=== PATIENT | female | born 1995 | race Caucasian/White ===

== ENCOUNTER 2017-12-16 02:33 | Emergency (ER) | payer BC ==
[2017-12-16 02:41] VITALS: BP 125/80
--- NOTE | 2017-12-16 03:02 | ER Report ---
History and Physical Time Seen By MD: 02:56 Hx. of Stated Complaint: PATIENT STATES THAT SHE HAS SUICIDE IDEATION; SHE DOSE HAVE A PLAN; STATES THAT IT HAS CHANGED OVER THE CORSE OF THE NIGHT; PATIENT STATES THAT SHE WAS GOING TO OVER DOSE ON ANY MEDICATION THAT SHE HAD IN THE HOUSE. HPI/ROS CHIEF COMPLAINT: suicidal ideation HISTORY OF PRESENT ILLNESS: This is a 22 year old female. She is feeling suicidal. Plan was to overdose on medication tonight. Having relationship problems. Is from [place], and needs to return this spring. Has had depression since she was 11 years old. Has attempted suicide twice in the past with attempted strangulation, but never told anyone. [facility]. No medications. No other health problems. REVIEW OF SYSTEMS: Respiratory: No cough, no dyspnea. Cardiovascular: No chest pain, no palpitations. Gastrointestinal: No vomiting, no abdominal pain. Musculoskeletal: No musculoskeletal pain. Allergies: Coded Allergies: Penicillins (Verified Allergy, Unknown, 12/16/17) Home Meds No Active Prescriptions or Reported Meds Reviewed Nurses Notes: Yes Hx Substance Use Disorder: Yes (MARIJUANA) Hx Alcohol Use: Yes Constitutional Vital Sign - Last 24 Hours 12/16/17 02:41 Temp 98.7 Pulse 105 Resp 18 B/P (MAP) 125/80 Pulse Ox 96 O2 Delivery Room Air Physical Exam General Appearance: Alert, no acute distress. Eyes: Pupils equal and round. ENT: Normal oral mucosa. Moist mucous membranes. Neck: Neck is supple and non tender. Respiratory: Chest is non tender, lungs are clear to auscultation. Cardiac: regular rate and rhythm Gastrointestinal: Abdomen is soft and non tender, no masses, bowel sounds normal. Musculoskeletal: Extremities have full range of motion. Non tender. Skin: No rashes or lesions. DIFFERENTIAL DIAGNOSIS: After history and physical exam differential diagnosis was considered for suicidal ideation. Medical Decision Making Data Points Result Diagram: 12/16/17 0250 12/16/17 0250 Laboratory Hematology Test 12/16/17 02:50 12/16/17 03:44 Red Blood Count 4.89 M/uL (4.17-5.56) Mean Corpuscular Volume 90.1 fL (80.0-96.0) Mean Corpuscular Hemoglobin 31.2 pg (26.0-33.0) Mean Corpuscular Hemoglobin Concent 34.6 g/dL (32.0-36.0) Red Cell Distribution Width 13.3 % (11.5-14.5) Mean Platelet Volume 6.7 fL (7.2-11.1) Neutrophils (%) (Auto) 63.1 % (39.4-72.5) Lymphocytes (%) (Auto) 28.0 % (17.6-49.6) Monocytes (%) (Auto) 6.9 % (4.1-12.4) Eosinophils (%) (Auto) 1.2 % (0.4-6.7) Basophils (%) (Auto) 0.8 % (0.3-1.4) Nucleated RBC Relative Count (auto) 0.0 /100WBC Neutrophils # (Auto) 6.8 K/uL (2.0-7.4) Lymphocytes # (Auto) 3.0 K/uL (1.3-3.6) Monocytes # (Auto) 0.7 K/uL (0.3-1.0) Eosinophils # (Auto) 0.1 K/uL (0.0-0.5) Basophils # (Auto) 0.1 K/uL (0.0-0.1) Nucleated RBC Absolute Count (auto) 0.00 K/uL Sodium Level 144 mmol/L (137-145) Potassium Level 3.9 mmol/L (3.5-5.0) Chloride Level 100 mmol/L (98-107) Carbon Dioxide Level 26 mmol/L (22-31) Blood Urea Nitrogen 8 mg/dl (7-18) Creatinine 0.80 mg/dl (0.52-1.04) Glomerular Filtration Rate Calc > 60.0 Random Glucose 95 mg/dl (75-110) Calcium Level 9.7 mg/dl (8.4-10.2) Magnesium Level 2.1 mg/dl (1.7-2.2) Total Bilirubin 0.3 mg/dl (0.2-1.3) Aspartate Amino Transf (AST/SGOT) 19 U/L (0-35) Alanine Aminotransferase (ALT/SGPT) 28 U/L (0-56) Alkaline Phosphatase 87 U/L (0-126) Total Protein 9.1 gm/dl (6.3-8.2) Albumin 4.9 g/dl (3.5-5.0) Human Chorionic Gonadotropin, Qual Negative (NEGATIVE) Salicylates Level < 10 mg/L Salicylate Last Dose Date Unk Acetaminophen Level < 10 ug/ml Serum Alcohol 43 mg/dl Urine Color Straw Urine Clarity Clear Urine pH 7.0 pH (4.8-9.5) Urine Specific [place] 1.008 Urine Protein Negative mg/dL (NEGATIVE) Urine Glucose (UA) Negative mg/dL (NEGATIVE) Urine Ketones Negative mg/dL (NEGATIVE) Urine Blood Negative (NEGATIVE) Urine Nitrite Negative (NEGATIVE) Urine Bilirubin Negative (NEGATIVE) Urine Urobilinogen Negative mg/dL (0.2-1.9) Urine Leukocyte Esterase Negative (NEGATIVE) Urine RBC None /HPF (0-2/HPF) Urine WBC 1 /HPF (0-5/HPF) Urine Squamous Epithelial Cells Few /LPF (</=FEW) Urine Bacteria Negative /HPF (NONE-FEW) Urine Mucus None /HPF (NONE-FEW) Urine Opiates Screen Negative Urine Barbiturates Screen Negative Ur Tricyclic Antidepressants Screen Negative Urine Phencyclidine Screen Negative Urine Amphetamines Screen Negative Urine Benzodiazepines Screen Negative Urine Cocaine Screen Negative Urine Cannabinoids Screen Negative Chemistry Test 12/16/17 02:50 12/16/17 03:44 White Blood Count 10.7 k/uL (4.5-11.0) Red Blood Count 4.89 M/uL (4.17-5.56) Hemoglobin 15.3 g/dL (12.0-16.0) Hematocrit 44.0 % (34.0-47.0) Mean Corpuscular Volume 90.1 fL (80.0-96.0) Mean Corpuscular Hemoglobin 31.2 pg (26.0-33.0) Mean Corpuscular Hemoglobin Concent 34.6 g/dL (32.0-36.0) Red Cell Distribution Width 13.3 % (11.5-14.5) Platelet Count 373 K/uL (150-450) Mean Platelet Volume 6.7 fL (7.2-11.1) Neutrophils (%) (Auto) 63.1 % (39.4-72.5) Lymphocytes (%) (Auto) 28.0 % (17.6-49.6) Monocytes (%) (Auto) 6.9 % (4.1-12.4) Eosinophils (%) (Auto) 1.2 % (0.4-6.7) Basophils (%) (Auto) 0.8 % (0.3-1.4) Nucleated RBC Relative Count (auto) 0.0 /100WBC Neutrophils # (Auto) 6.8 K/uL (2.0-7.4) Lymphocytes # (Auto) 3.0 K/uL (1.3-3.6) Monocytes # (Auto) 0.7 K/uL (0.3-1.0) Eosinophils # (Auto) 0.1 K/uL (0.0-0.5) Basophils # (Auto) 0.1 K/uL (0.0-0.1) Nucleated RBC Absolute Count (auto) 0.00 K/uL Glomerular Filtration Rate Calc > 60.0 Calcium Level 9.7 mg/dl (8.4-10.2) Magnesium Level 2.1 mg/dl (1.7-2.2) Total Bilirubin 0.3 mg/dl (0.2-1.3) Aspartate Amino Transf (AST/SGOT) 19 U/L (0-35) Alanine Aminotransferase (ALT/SGPT) 28 U/L (0-56) Alkaline Phosphatase 87 U/L (0-126) Total Protein 9.1 gm/dl (6.3-8.2) Albumin 4.9 g/dl (3.5-5.0) Human Chorionic Gonadotropin, Qual Negative (NEGATIVE) Salicylates Level < 10 mg/L Salicylate Last Dose Date Unk Acetaminophen Level < 10 ug/ml Serum Alcohol 43 mg/dl Urine Color Straw Urine Clarity Clear Urine pH 7.0 pH (4.8-9.5) Urine Specific [place] 1.008 Urine Protein Negative mg/dL (NEGATIVE) Urine Glucose (UA) Negative mg/dL (NEGATIVE) Urine Ketones Negative mg/dL (NEGATIVE) Urine Blood Negative (NEGATIVE) Urine Nitrite Negative (NEGATIVE) Urine Bilirubin Negative (NEGATIVE) Urine Urobilinogen Negative mg/dL (0.2-1.9) Urine Leukocyte Esterase Negative (NEGATIVE) Urine RBC None /HPF (0-2/HPF) Urine WBC 1 /HPF (0-5/HPF) Urine Squamous Epithelial Cells Few /LPF (</=FEW) Urine Bacteria Negative /HPF (NONE-FEW) Urine Mucus None /HPF (NONE-FEW) Urine Opiates Screen Negative Urine Barbiturates Screen Negative Ur Tricyclic Antidepressants Screen Negative Urine Phencyclidine Screen Negative Urine Amphetamines Screen Negative Urine Benzodiazepines Screen Negative Urine Cocaine Screen Negative Urine Cannabinoids Screen Negative Toxicology Test 12/16/17 02:50 12/16/17 03:44 Salicylates Level < 10 mg/L Salicylate Last Dose Date Unk Acetaminophen Level < 10 ug/ml Serum Alcohol 43 mg/dl Urine Opiates Screen Negative Urine Barbiturates Screen Negative Ur Tricyclic Antidepressants Screen Negative Urine Phencyclidine Screen Negative Urine Amphetamines Screen Negative Urine Benzodiazepines Screen Negative Urine Cocaine Screen Negative Urine Cannabinoids Screen Negative Urinalysis Test 12/16/17 03:44 Urine Color Straw Urine Clarity Clear Urine pH 7.0 pH (4.8-9.5) Urine Specific [place] 1.008 Urine Protein Negative mg/dL (NEGATIVE) Urine Glucose (UA) Negative mg/dL (NEGATIVE) Urine Ketones Negative mg/dL (NEGATIVE) Urine Blood Negative (NEGATIVE) Urine Nitrite Negative (NEGATIVE) Urine Bilirubin Negative (NEGATIVE) Urine Urobilinogen Negative mg/dL (0.2-1.9) Urine Leukocyte Esterase Negative (NEGATIVE) Urine RBC None /HPF (0-2/HPF) Urine WBC 1 /HPF (0-5/HPF) Urine Squamous Epithelial Cells Few /LPF (</=FEW) Urine Bacteria Negative /HPF (NONE-FEW) Urine Mucus None /HPF (NONE-FEW) ED Course/Re-evaluation ED Course Discussed the case with Zenobia Neff who accepted her for admission to [facility]. Decision to Disposition Date: Dec 16, 2017 Decision to Disposition Time: 04:20 Depart Departure Latest Vital Signs Vital Signs Date Time Temp Pulse Resp B/P (MAP) Pulse Ox O2 Delivery O2 Flow Rate FiO2 12/16/17 02:41 98.7 105 18 125/80 96 Room Air Impression: Primary Impression: Suicidal ideation Condition: Condition Unchanged Disposition: XFER TO [facility] New Scripts No Active Prescriptions or Reported Meds GLADIS KHAN MD Dec 16, 2017 03:02
[2017-12-16 03:11] LABS: PLATELET COUNT, AUTOMATED 373 K/uL (150-450)
== END 2017-12-16 05:09 ==
LOC: ER 02:36
DX: R45.851 Suicidal ideations (principal)
CPT/HCPCS: 36415; 80305; 80320; 80329; 81001; 82040; 82247; 82310; 82374; 82435; 82565; 82947; 83735; 84075; 84132; 84155; 84295; 84443; 84450; 84460; 84520; 84703; 85025; 99285

== ENCOUNTER 2017-12-16 04:03 | Inpatient (IN) | payer BC ==
[~2017-12-16] VITALS: Ht 170.2 cm; Wt 51.3 kg
[2017-12-16] MEDS ORDERED: ACETAMINOPHEN 325 MG TAB PO PRN (06:00)
[2017-12-16] MEDS ORDERED: MAG HYD/AL HYD/SIMETH 30ML UDC PO PRN (06:00)
[2017-12-16 06:02] VITALS: BP 118/78
[2017-12-16] MEDS ORDERED: INFLUENZA VIRUS VAC 0.5 ML SYR IM ONLY ONE (06:20)
[2017-12-16 08:20] VITALS: BP 98/58
[2017-12-16] MEDS ORDERED: MULTIVITAMINS TAB PO SCH (09:00)
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
== END 2017-12-16 15:45 | disposition home or self-care (01) | DRG 882 ==
LOC: BHS 04:03
PROVIDERS: ADMIT Nurse Practitioner Psychiatric/Mental Health; ATTEND Nurse Practitioner Psychiatric/Mental Health
DX: F43.23 Adjustment disorder with mixed anxiety and depressed mood (principal); R45.851 Suicidal ideations; F10.920 Alcohol use, unspecified with intoxication, uncomplicated; F60.3 Borderline personality disorder; Y90.2 Blood alcohol level of 40-59 mg/100 ml; Z56.0 Unemployment, unspecified; Z91.5 Personal history of self-harm; Z88.0 Allergy status to penicillin; Z91.410 Personal history of adult physical and sexual abuse; Z53.29 Procedure and treatment not carried out because of patient's decision for other reasons; Z23 Encounter for immunization
CPT/HCPCS: 90471; 90674